=== PATIENT | male | born 1980 | race American Indian/Alaskan Native ===

== ENCOUNTER 2017-02-14 02:15 | Emergency (ER) | payer SELFPAY ==
[2017-02-14 02:32] VITALS: BP 187/111
[2017-02-14 05:26] LABS: Bacteria,Urine 1+ /HPF (Negative); Bilirubin,Urine NEG (Negative); Blood,Urine NEG (Negative); Ketones,Urine TR mg/dL (Negative); Leukocyte Esterase,Urine MOD (Negative); Mucus,Urine FEW /HPF; Nitrite,Urine NEG (Negative); Protein,Urine <15 mg/dL mg/dL (Negative); Urobilinogen,Urine < 2.0 mg/dL (<2.0)
[2017-02-14] MEDS ORDERED: ROCEPHIN IM ONE (05:53)
[2017-02-14] MEDS ORDERED: ZITHROMAX PO ONE (05:53)
[2017-02-14] MEDS ORDERED: XYLOCAINE 1% MPF 5 mL INFILTRATI ONE (05:53)
--- NOTE | 2017-02-14 05:56 | Emergency Department Report ---
ED Male HPI - General Chief complaint: Urogenital-Male Stated complaint: PENILE D/C Time Seen by Provider: 02/14/17 05:53 Source: patient Mode of arrival: Ambulatory Limitations: No Limitations - History of Present Illness Initial comments: 36-year-old male past medical history hypertension presents with complaint of burning with urination and penile discharge for 3-4 days. States he was recently told by one of his sex partners that they had chlamydia. Patient is awake alert and oriented 3 denies any rash and genitourinary region states he is having clear to yellowish discharge from penis. Nontoxic-appearing, denies fever chills or abdominal pain. MD Complaint: penile discharge Onset/Timin -: days(s) Location: penis Severity: mild Quality: burning Improves with: urination Worsens with: none discharge - Related Data Previous Rx's Medication Instructions Recorded Last Taken Type Famotidine [Pepcid] 20 mg PO BID #40 tablet 11/12/14 Unknown Rx Hyoscyamine Subl [Levsin Sl 0.125] 0.125 mg SL Q4HR PRN #20 tablet 11/12/14 Unknown Rx Promethazine [Phenergan] 25 mg PO Q6H PRN #25 tablet 11/12/14 Unknown Rx Allergies Allergy/AdvReac Type Severity Reaction Status Date / Time No Known Allergies Allergy Unverified 11/12/14 15:52 ED Review of Systems ROS: Stated complaint: PENILE D/C Other details as noted in HPI Constitutional: denies: chills, fever Eyes: denies: eye pain, eye discharge, vision change ENT: denies: ear pain, throat pain Respiratory: denies: cough, shortness of breath, wheezing Cardiovascular: denies: chest pain, palpitations Endocrine: no symptoms reported Gastrointestinal: denies: abdominal pain, nausea, diarrhea Genitourinary: dysuria, discharge. denies: urgency Musculoskeletal: denies: back pain, joint swelling, arthralgia Skin: denies: rash, lesions Neurological: denies: headache, weakness, paresthesias Psychiatric: denies: anxiety, depression Hematological/Lymphatic: denies: easy bleeding, easy bruising ED Past Medical Hx - Past Medical History Hx Hypertension: Yes Additional medical history: heart murmur - Surgical History Past Surgical History?: No - Social History Smoking Status: Never Smoker Substance Use Type: None - Medications Home Medications: Home Medications Medication Instructions Recorded Confirmed Last Taken Type Famotidine [Pepcid] 20 mg PO BID #40 tablet 11/12/14 Unknown Rx Hyoscyamine Subl [Levsin Sl 0.125] 0.125 mg SL Q4HR PRN #20 tablet 11/12/14 Unknown Rx Promethazine [Phenergan] 25 mg PO Q6H PRN #25 tablet 11/12/14 Unknown Rx ED Physical Exam - General Limitations: No Limitations General appearance: alert, in no apparent distress - Head Head exam: Present: atraumatic, normocephalic - Eye Eye exam: Present: normal appearance, PERRL, EOMI - ENT ENT exam: Present: mucous membranes moist - Neck Neck exam: Present: normal inspection, full ROM - Respiratory Respiratory exam: Present: normal lung sounds bilaterally. Absent: respiratory distress - Cardiovascular Cardiovascular Exam: Present: regular rate, normal rhythm. Absent: systolic murmur, diastolic murmur, rubs, gallop - GI/Abdominal GI/Abdominal exam: Present: soft, normal bowel sounds - Rectal Rectal exam: Present: deferred - exam: Present: urethral discharge - Extremities Exam Extremities exam: Present: normal inspection - Back Exam Back exam: Present: normal inspection - Neurological Exam Neurological exam: Present: alert, oriented X3, CN II-XII intact - Psychiatric Psychiatric exam: Present: normal affect, normal mood - Skin Skin exam: Present: warm, dry, intact, normal color. Absent: rash ED Course Vital Signs 02/14/17 02:30 Temperature 99.2 F Pulse Rate 106 H Respiratory 18 Rate Blood Pressure 187/111 O2 Sat by Pulse 98 Oximetry ED Medical Decision Making - Medical Decision Making A/P: Urethritis, asymptomatic hypertension 1-patient empirically treated with azithromycin and ceftriaxone 2-GC cultures sent 3-patient given follow-up with primary care 4-patient states he is aware he has hypertension and has been prescribed medicine in the past which she says he has at home. I advised patient that his blood pressure is high and although he is asymptomatic and denies chest pain shortness of breath palpitations nausea vomiting dizziness headache shortness of breath or blurred vision that if he does not use medications he may experience complications of hypertension. Patient stated that he understood this and would follow up with the primary care referral that I would give him. He said he has medication at home. Critical care attestation.: If time is entered above; I have spent that time in minutes in the direct care of this critically ill patient, excluding procedure time. ED Disposition Clinical Impression: Urethritis Disposition: TO HOME OR SELFCARE Is pt being admited?: No Does the pt Need Aspirin: No Condition: Stable Instructions: Nonspecific Urethritis in Men (ED), Hypertension (ED) Referrals: [facility] [Outside] - 3-5 Days [facility] [Provider Group] - 3-5 Days Forms: STI Treatment and Prevention, Work/School Release Form(ED) Time of Disposition: 05:54
== END 2017-02-14 06:58 | disposition home or self-care (01) ==
LOC: ED 02:15
DX: N34.2 Other urethritis (principal); I10 Essential (primary) hypertension
CPT/HCPCS: 81001; 87591; 96372; 99283; J0696